=== PATIENT | male | born 2005 | race Caucasian/White ===

== ENCOUNTER 2025-01-26 02:24 | Emergency (ER) | payer BC, SELFPAY ==
[2025-01-26 02:29] VITALS: BP 128/76; PULSE 85; RESP 18; TEMP 36.8; O2SAT 97; BMI 29.0
--- NOTE | 2025-01-26 02:31 | ED_ITS ---
HPI - Extremity Injury (Upper) General Time Seen by Provider: 02:31 Date Seen: 01/26/25 Chief Complaint: Extremity Pain/Injury, Upper Stated Complaint: left elbow pain Time Seen by Provider: 01/26/25 02:31 Source: patient and RN notes reviewed Mode of arrival: ambulatory Limitations: no limitations History of Present Illness HPI narrative: This 19-year-old male is coming in with pain in his left elbow. He was out skateboarding, was just going to do this for about 10 minutes prior to going to bed. He fell off the skateboard, landed on his left elbow, hitting the backside of his elbow. No numbness or tingling in this arm but there is pain with range of motion of his elbow. Did not hit his head, no other injuries noted. He was on asphalt, sounds as if his elbow took the majority of the impact. He has placed ice on it, has not taken anything for pain. Related Data Home Medications ?Medication ?Instructions ?Recorded ?Confirmed fluoxetine 20 mg capsule (Prozac) 20 mg PO DAILY 01/26/25 01/26/25 Allergies Allergy/AdvReac Type Severity Reaction Status Date / Time Penicillins Allergy Mild Hives Verified 01/26/25 02:30 Review of Systems Narrative: As per HPI. PFSH PFS Medical History (Updated 01/26/25 @ 03:02 by Lisa Hennessy MD) Depression ?F32.A - Depression, unspecified (ICD-10) Surgical History (Updated 01/26/25 @ 02:40 by Wiliam Gooden RN) No significant past surgical history Social History Smoking Status: Never smoker Second hand tobacco smoke exposure: No How often do you have a drink containing alcohol: never AUDIT-C Alcohol total score: 0 Non-prescribed substance use: denies use Exam Const: Vital Signs, click to edit/add: Vital Signs - 24 hr 01/26/25 02:29 01/26/25 02:36 01/26/25 03:08 Temperature 98.2 F 98.2 F 98.2 F Pulse Rate [Right Pulse Oximeter] 85 81 Respiratory Rate 18 18 Blood Pressure [Ri ght Upper Arm] 128/76 121/74 Pulse Oximetry 97 97 Oxygen Delivery Me thod Room Air Room Air 01/26/25 03:09 Temperature 98.2 F Pulse Rate [Right Pulse Oximeter] 81 Respiratory Rate 18 Blood Pressure [Ri ght Upper Arm] 121/74 Pulse Oximetry Oxygen Delivery Me thod This 19-year-old male is alert, interactive, no apparent distress. Ambulatory in the ED of his own accord. He has some superficial non active bleeding abrasions on the elbow, overlying the olecranon. He has some generalized tenderness throughout the elbow, with palpation and with range of motion. He is not tender up finish shoulder, over his AC joint or clavicle. I can mobilize his wrist when it is isolated, no pain with range of motion of the wrist or into the hand. He has normal sensation of his fingers, good coloration, good radial pulse. Documenting provider has reviewed patient's vital signs: yes Course Course ED Course: We will give patient 1000 mg oral acetaminophen for pain management. We will obtain x-rays of his left elbow to rule out underlying fracture. Reevaluation(s) Time of Reevaluation #1: 03:02 Reevaluation #1: Did review with patient that he has a radial head fracture. Discussed that there is no significant displacement at this time, hopefully will be nonsurgical for him but it is imperative he follow up with Orthopedics. We did review limitations of this fracture with healing and limitations a full range of motion for some people, walking. Will give him the number for Orthopedics to contact on Tuesday morning to get scheduled for follow-up. He was placed in a sling for immobilization comfort. Did review gentle range of motion with him which should be acceptable and wanted to minimize do min nancy to range of motion of the elbow. Ultimately, he really does need to follow up with Orthopedics and the number was provided. Will discharge to home at this time. Vital Signs Vital signs: Initial Vital Signs Temperature 98.2 F 01/26/25 02:29 Temperature Source Temporal Artery Scan 01/26/25 02:29 Pulse Rate 85 01/26/25 02:29 Respiratory Rate 18 01/26/25 02:29 Blood Pressure 128/76 01/26/25 02:29 Blood Pressure Mean 93 01/26/25 02:29 Blood Pressure Position Sitting 01/26/25 02:29 Pulse Oximetry 97 01/26/25 02:29 Oxygen Delivery Method Room Air 01/26/25 02:29 Vital Signs Temperature 98.2 F 01/26/25 02:29 Pulse Rate 85 01/26/25 02:29 Respiratory Rate 18 01/26/25 02:29 Blood Pressure 128/76 01/26/25 02:29 Pulse Oximetry 97 01/26/25 02:29 Oxygen Delivery Method Room Air 01/26/25 02:29 Temperature 98.2 F 01/26/25 03:09 Pulse Rate 81 01/26/25 03:09 Respiratory Rate 18 01/26/25 03:09 Blood Pressure 121/74 01/26/25 03:09 Pulse Oximetry 97 01/26/25 03:08 Oxygen Delivery Method Room Air 01/26/25 03:08 Medications Administered Medications: Discontinued Medications Generic Name Dose Route Start Last Admin Trade Name Freq PRN Reason Stop Dose Admin Acetaminophen 1,000 mg 01/26/25 02:34 01/26/25 02:36 Acetaminophen 500 Mg Tablet PO 01/26/25 02:35 1,000 mg ONCE ONE Administration MDM - Extremity Injury (Upper) Imaging Data XR left elbow: Attestation: I have reviewed the pertinent imaging results. My impression: I do see a sail sign on this x-ray imaging, await Radiology over-read to help identify the fracture. Radiologist's impression: Patient: [facility] Facility:?[facility] Patient ID:?[id number] Site Patient ID:?[id number]. Site :?2004 Study:?XRay-Extremity Left ELBOW-01/26/2025 2:55:10 AM Ordering Physician:Aleah Gonzalez Final Report: INDICATION: Fall, elbow injury, fall off skateboard TECHNIQUE: Elbow radiograph 5 views left COMPARISON: None FINDINGS: Bone: There is a nondisplaced and mildly impacted fracture at the radial head- neck junction. Joint: The elbow joint is unremarkable. A small elbow effusion is present and may be due to hemarthrosis. Soft tissue: Unremarkable. No radiopaque foreign bodies are seen. IMPRESSIONS: 1. There is a nondisplaced and mildly impacted fracture at the radial head-neck junction. 2. A small elbow effusion is present and may be due to hemarthrosis. Dictated by Sanya Bolanos MD @ 01/26/2025 2:58:28 AM Dictated by: Sanya Bolanos MD @ 01/26/2025 02:58:31 (Electronic Signature) Discharge Plan Discharge Clinical Impression: Closed fracture of radial head Qualifiers: Encounter type: initial encounter Fracture alignment: nondisplaced Laterality: left Qualified Code(s): S52.125A - Nondisplaced fracture of head of left radius, initial encounter for closed fracture Patient Disposition: Home, Self-Care Condition: Stable Instructions: Elbow Fracture (ED) Additional Instructions: Use sling for comfort and immobilization. Continue to ice as much as you are able to over the next 2-3 days to help decrease pain and swelling. Tylenol 1000 mg 3 times a day baseline for pain. Supplement with ibuprofen per bottle directions as needed for additional pain control. You need to follow-up with orthopedics, phone number for orthopedist in [facility] is [phone]. Call Tuesday after 8:00 a.m. to get scheduled for a follow-up. Activity Level: Activity as Tolerated Prescriptions: No Action fluoxetine [Prozac] 20 mg capsule 20 mg PO DAILY Stand Alone Forms: [employer] Info Instructions
--- NOTE | 2025-01-26 02:34 | CRLHL7_ITS ---
For Patients: As a result of the Cures Act, medical imaging exams and procedure reports are released immediately into your electronic medical record. You may view this report before your referring provider. If you have questions, please contact your health care provider. INDICATION: Fall, elbow injury, fall off skateboard TECHNIQUE: Elbow radiograph 5 views left COMPARISON: None FINDINGS: Bone: There is a nondisplaced and mildly impacted fracture at the radial head-neck junction. Joint: The elbow joint is unremarkable. A small elbow effusion is present and may be due to hemarthrosis. Soft tissue: Unremarkable. No radiopaque foreign bodies are seen. IMPRESSIONS: 1. There is a nondisplaced and mildly impacted fracture at the radial head-neck junction. 2. A small elbow effusion is present and may be due to hemarthrosis. Dictated by Sanya Bolanos MD @ 01/26/2025 2:58:28 AM Dictated by: Sanya Bolanos MD @ 01/26/2025 02:58:31 (Electronically Signed)
[2025-01-26 02:36] VITALS: TEMP 36.8
[2025-01-26] MEDS: ACETAMINOPHEN 500 MG TABLET 1000 MG PO (02:36)
--- OUTSIDE RECORDS SUMMARY | 2025-01-26 03:04 | XMS_ITS | Clinical Summary ---
Author Organization [facility] Address [address] [place] [id number] Care Team Providers Care Gang Sawyer Name Role Phone Elian Chris MD [facility] Allergies Active Allergy Reactions Criticality Noted Date Comments Penicillins *Unknown - Childhood Rxn Unknown 04/18/2022 Medications budesonide-formot Xavier (SYMBICORT) 80-4.5 mcg/actuation (80-4.5 mcg each actuation) inhalerIndication s:Mild intermittent asthma without complication (HC) Inhale 2 puffs twice daily and 1-2 puffs every 4 hours as needed for asthma exacerbation s. Max of 8 puffs per day. 1 Each 9 5 Active dextroamphetamine -amphetamine (Adderall XR) 20 mg Extended-Release capsuleIndication s:ADHD (attention deficit hyperactivity disorder), inattentive type Take 1 Capsule (20 mg) by mouth once daily. 30 Capsule 5 02/24/20 25 Active FLUoxetine 10 mg capsuleIndication s:Depression, major, single episode, moderate (HC),Anxiety Take 1-2 Capsules (10-20 mg) by mouth once daily. OK to increase to 2 pills per day after about 1-2 weeks if no side effects 30 Capsule 1 5 Active methylphenidate HCl 36 mg Extended-Release tablet TAKE 1 TABLET BY MOUTH EVERY DAY IN THE MORNING FOR 30 DAYS 08/30/202 2 01/25/20 25 Discontin ued(*Med complete/ Regimen complete/ Level of care change) buPROPion (WELLBUTRIN XL) 150 mg Extended-Release tabletIndications :Inattention,Depr essed mood,Anxiety Take 1 Tablet (150 mg) by mouth once daily in the morning. 30 Tablet 1 5 01/25/20 25 Discontin ued(*Med ineffecti ve) Active Problems Problem Noted Date Diagnosed Date Controlled substance agreement signed 01/24/2025 Depression, major, single episode, moderate 01/08 ADHD (attention deficit hype ractivity disorder), inattentive type 11/05/2024 Overview (11/05/2024): Dx 2021 through [facility] Encounters Date Type Department Care Team Description 01/24/2025 3:05 PM CDT Office Visit [facility] [address] [place] [address] Elian Chris MD Well Child (medication check ); Immunization/Injectio n 01/24/2025 Travel 10/31/2024 3:30 PM MATERIAL EXPEDITOR Office Visit [facility] [address] [place] [address] Elian Chris MD Asthma; Behavioral Problem (medication for adhd ) 10/31/2024 Travel from Last 3 Months Immunizations Immunization Administration Dates Next Due DTaP 2009, 5,2004,06/24,2004 HIB PRP-T (ActHIB,Hiberix) 09/10/2005 HPV 9 (Gardasil 9) 01/24/2025,06/10/2021 Hepatitis A (Peds) 2009,04/05/2008 Hepatitis B (Peds) 2004 Hepatitis B, Unspecified 03/16/2005,2004 Hib Conjugate, Unspecified 09/15/2005,,2004,04/22 Inactivated Polio Vaccine 2009 Influenza A (H1N1), Inactivated 10/22/2009,08/23 Influenza Virus, Unspecified 10/28/2006,08/03/20 05,2004 Influenza, IIV3 (Age 6-35 mos) 06/23/2010,2008,08/18/2008 Influenza, IIV3 (Age >=3 years) 08/27/2007 MENINGOCOCCAL VACCINE (MENQU ADFI 0.5ML) 2YO+ POLYSACCHARIDE PF 06/10/2021 MENINGOCOCCAL VACCINE 2 VIAL 2MO-55YO (MENVEO) 05/27/2015 MMR 04/05/2008,06/16/2005 Pneumococcal conj 7-Valent (Prevnar 7) 0 03/16/2005,2004,2004,04/22 Polio Virus, Unspecified 2004,2004,0 2004 Td (Age >=7 Years) 05/24/2015 Tdap 05/27/2015 Varicella Vaccine 04/05/2008,06/16/2005 meningococcal B, Recombinant 06/10/2021 Social History Tobacco Use Types Packs/Day Years Used Date Smoking Tobacco: Never Smokeless Tobacco: Never Alcohol Use Standard Drinks/Week Comments Yes 0 (1 standard drink = 0.6 oz pur e alcohol) occasional PHQ-2 Answer Date Recorded PHQ-2 TOTAL SCORE 4 01/24/2025 Social Connections Answer Date Recorded Do you often feel lonely or isolated from those around you? 0 10/31/2024 Financial Resource Strain Answer Date R ecorded Difficulty of Paying Living Expenses 3 10/31/2024 Difficulty of Paying Living Expenses Not on file 10/31/2024 Food Insecurity Answer Date Recorded Do you worry your food will run out before you are able to buy more? 1 10/31/2024 Transportation Needs Answer Date Record ed Does lack of transportation keep you from medica l appointments? 1 10/31/2024 Does lack of transportation keep you from work, meetings or getting things that you need? 1 10/31/2024 Housing Stability Answer Date Recorded What is your housing situation today? 1 10/31/2024 Utilities Answer Date Recorded Do you have trouble paying f or utilities (for example, heat, electricity, water, phone)? 1 10/31/2024 Sex and Gender Information Value Date Recorded Sex Assigned at Not on file Legal Sex Male 7:03 AM MATERIAL EXPEDITOR Gender Identity Not on file Sexual Orientation Not on file Obstetrics History Last Filed Vital Signs Vital Sign Reading Time Taken Comments Blood Pressure 133/75 01/24/2025 3:08 PM CDT Pulse 74 01/24/2025 3:08 PM CDT Temperature 36.7 C (98.1 F) 04/18/2022 12:31 PM CDT Respiratory Rate 14 04/18/2022 12:31 PM CDT Oxygen Saturation 98% 01/24/2025 3:08 PM CDT Inhaled Oxygen Concentration - - Weight 101.4 kg (223 lb 8 oz) 01/24/2025 3:08 PM CDT Height 187.3 cm (6' 1.74) 01/24/2025 3:08 PM CD T Body Mass Index 28.9 01/24/2025 3:08 PM CDT Plan of Treatment Upcoming Encounters Date Type Department Care Team (Late st Contact Info) Description 02/27/2025 3:30 PM CDT Office Visit [facility] [address] [place] [address] Elian Chris MD [address] [place] [address] Health Maintenance Due Date Last Done Comments COVID-19 vaccine series ( season) 2024 11/17/2021, 05/29/2021, 02/26/2021 HPV series for age 9-26 (3 - Male 3-dose series) 04/18/2025 01/24/2025, 06/10/2021 Tetanus booster 05/27/2025 05/27/2015, 05/24/2015 Influenza Vaccine (Season Ended) 2025 06/23/2010, 08/03/2009, 08/18/2008, Additional history exists BMI (ht and wt on same day) for age 18+ 01/24/2026 01/24/2025 Depression screening for age 12+ 01/24/2026 01/24/2025, 10/31/2024 Well Child Check for age 3-20 01/24/2026 01/24/2025 Pneumococcal series for age 6-49 Aged Out 03/16/2005, 2004, 2004, Additional history exists No longer eligible based on patient's age to complete this topic Tdap Completed 05/27/2015 Meningococcal series for age 11-21 Completed 06/10/2021, 05/27/2015 HIV for age 15-65 Completed 01/24/2025 Hepatitis C screening for age 18-79 Completed 01/24/2025 Procedures Procedure Name Priority Date/Time Associated Diagnosis Comments LIPID PANEL Routine 01/24/2025 4:13 PM CDT Lipid screening ANTI HIV 1/2 Routine 01/24/2025 4:13 PM CDT Screening for HIV (human immunodeficiency virus) ANTI HCV Routine 01/24/2025 4:13 PM CDT Need for hepatitis C screening test COMPLIANCE DRUG ANALYSIS Routine 10/31/2024 4:26 PM MATERIAL EXPEDITOR Inattention from Last 3 Months Results * ANTI HCV (01/24/2025 4:13 PM CDT) HEPATITIS C ANTIBODY NON-REACTI VE NON-REACT ERASMO [facility] Comment: HCV antibody was non-reactive. There is no laboratory evidence of HCV infection. In most cases, no further action is required. However, if recent HCV exposure is suspected, a test for HCV RNA (test code 21400) is suggested. For additional information please refer to http://education.Somoto/faq/FZH98j5 (This link is being provided for informational/ educational purposes only.) Blood BLOOD SPECIMEN / Unknown 01/24/2025 4:13 PM CDT 01/24/2025 4:15 PM CDT Narrative [facility] - 01/25/2025 1:07 PM CDT FASTING:NO FASTING: NO us Elian Chris MD SEND OUTS Final Result [employer] [facility] [address] [place] [address], [facility] [address] [place] [address] * ANTI HIV 1/2 [16776.0] (01/24/2025 4:13 PM CDT) Pathologist [facility] HIV AG/AB, 4TH GEN NON-REACT ERASMO NON-REACT ERASMO [facility] Comment: HIV-1 antigen and HIV-1/HIV-2 antibodies were not detected. There is no laboratory evidence of HIV infection. PLEASE NOTE: This information has been disclosed to you from records whose confidentiality may be protected by state law. If your state requires such protection, then the state law prohibits you from making any further disclosure of the information without the specific written consent of the person to whom it pertains, or as otherwise permitted by law. A general authorization for the release of medical or other information is NOT sufficient for this purpose. For additional information please refer to http://education.Somoto/faq/GAI112 (This link is being provided for informational/ educational purposes only.) The performance of this assay has not been clinically validated in patients less than 2 years old. Blood BLOOD SPECIMEN / Unknown 01/24/2025 4:13 PM CDT 01/24/2025 4:15 PM CDT Narrative [facility] - 01/25/2025 1:07 PM CDT FASTING:NO FASTING: NO Elian Chrsi MD SEND OUTS Final Result [employer] [facility] [address] [place] [address], [facility] [address] [place] [address] * (ABNORMAL) LIPID PANEL (01/24/2025 4:13 PM CDT) Pathologist [facility] CHOLESTEROL, TOTAL 176 <200 mg/dL [facility] HDL CHOLESTEROL 49 > OR = 40 mg/dL [facility] TRIGLYCERIDES 142 <150 mg/dL [facility] LDL-CHOLESTEROL 103(H) mg/dL (calc) [facility] Comment: Reference range: <100 Desirable range <100 mg/dL for primary prevention; <70 mg/dL for patients with CHD or diabetic patients with > or = 2 CHD risk factors. LDL-C is now calculated using the Tricia calculation, which is a validated novel method providing better accuracy than the Friedewald equation in the estimation of LDL-C. Mauricio SS et al. CHATO. 2013;310(63): 9988-6229 (http://education.[employer]/faq/ODC861) CHOL/HDLC RATIO 3.6 <5.0 (calc) [facility] [facility] NON HDL CHOLESTEROL 127 <130 mg/dL (calc) [employer] [facility] Comment: For patients with diabetes plus 1 major ASCVD risk factor, treating to a non-HDL-C goal of <100 mg/dL (LDL-C of <70 mg/dL) is considered a therapeutic option. Blood BLOOD SPECIMEN / Unknown 01/24/2025 4:13 PM CDT 01/24/2025 4:15 PM CDT Narrative [facility] - 01/25/2025 4:43 AM CDT FASTING:NO FASTING: NO Elian Chris MD CHEMISTRY Final Result [employer] [facility] [address] [place] [address], [facility] [address] [place] [address] * (ABNORMAL) COMPLIANCE DRUG ANALYSIS (10/31/2024 4:26 PM MATERIAL EXPEDITOR) 6-MONOACETYL MORPHINE NEG NEG ng/mL 11/06/2024 12:38 PM MATERIAL EXPEDITOR [facility] AMPHETAMINE URINE NEG <=500 ng/mL 11/06/2024 12:38 PM MATERIAL EXPEDITOR [facility] BARBITURATE URINE NEG <=200 ng/mL 11/06/2024 12:38 PM MATERIAL EXPEDITOR [facility] BENZODIAZEPINE URINE NEG <=100 ng/mL 11/06/2024 12:38 PM [facility] BUPRENORPHRINE URINE NEG <=5 ng/mL 10/11 12:38 PM [facility] COCAINE METAB URINE NEG <=300 ng/mL 11/06/2024 12:38 PM [facility] ETHYLGLUCURONIDE URINE NEG <=250 ng/mL 11/06/2024 12:38 PM [facility] FENTANYL URINE NEG <=4 ng/mL 11/06/2024 12:38 PM [facility] METHADONE URINE NEG <=300 ng/mL 11/06/2024 12:38 PM [facility] OPIATES URINE NEG <=300 ng/mL 11/06/2024 12:38 PM [facility] OXYCODONE URINE NEG <=100 ng/mL 11/06/2024 12:38 PM [facility] PROPOXYPHENE URINE NEG <=300 ng/mL 11/06/2024 12:38 PM [facility] THC 50 URINE NEG <=50 ng/mL 11/06/2024 12:38 PM [facility] TRAMADOL NEG <=200 ng/mL 11/06/2024 12:38 PM [facility] PH URINE 7.2(H) 5.0 - 7.0 11/06/2024 12:38 PM [facility] CREAT UR 144 >=20 mg/dL 11/06/2024 12:38 PM [facility] MASS SPECTROMETRY URINE See Below 11/06/2024 12:38 PM [facility] Comment:No basic or neutral drugs found. Urine URINE SPECIMEN / Unknown Non-Blood / Unknown 10/31/2024 4:26 PM MATERIAL EXPEDITOR 10/31/2024 4:26 PM [facility] - 11/06/2024 12:38 PM [facility] Current Outpatient Medications: budesonide-formoteroL (SYMBICORT) 80-4.5 mcg/actuation (80-4.5 mcg each actuation) inhaler, Inhale 2 puffs twice daily and 1-2 puffs every 4 hours as needed for asthma exacerbations. Max of 8 puffs per day. methylphenidate HCl 36 mg Extended-Release tablet, TAKE 1 TABLET BY MOUTH EVERY DAY IN THE MORNING FOR 30 DAYS No current facility-administered medications for this visit. As of 10/31/2024 Release to patient->Immediate Elian Chris MD URINE Final Result [facility] [address] [facility] [address] [place] [address], [place] from Last 3 Months Insurance [facility] Care Teams Gang Sawyer Relationship Specialty Start Date End Date [place]ian [place] [address] [address] PCP - General Family Practice 01/24/25
[2025-01-26 03:08] VITALS: BP 121/74; PULSE 81; RESP 18; TEMP 36.8; O2SAT 97
[2025-01-26 03:09] VITALS: BP 121/74; PULSE 81; RESP 18; TEMP 36.8
== END 2025-01-26 03:09 | disposition home or self-care (01) ==
PROVIDERS: Emergency Provider Family Medicine
DX: S52.125A Nondisplaced fracture of head of left radius, initial encounter for closed fracture (principal); Y93.51 Activity, roller skating (inline) and skateboarding
CPT/HCPCS: 73080; 99283; A9270